=== PATIENT | male | born 1995 ===

== ENCOUNTER 2025-04-06 08:27 | Outpatient (CLI) | payer OTHER | END 2025-04-06 08:28 | disposition home or self-care (01) | LOC: CSHSLEEP 08:27 | PROVIDERS: ATTEND Family Medicine | DX: G47.33 Obstructive sleep apnea (adult) (pediatric) (principal); R53.83 Other fatigue; E66.9 Obesity, unspecified; Z68.30 Body mass index [BMI] 30.0-30.9, adult; G47.10 Hypersomnia, unspecified | CPT/HCPCS: 95800 ==